=== PATIENT | female | born 1980 | race African-American/Black ===

== ENCOUNTER 2019-05-08 05:44 | Emergency (ER) | payer MEDICAID ==
[~2019-05-08] VITALS: Ht 162.6 cm; Wt 141.0 kg
[~2019-05-08 05:44] MED LIST: ACET120S38 RC; ACET9.6D PO; CLIN75CA2 PO; HYDR12.529 PO; [UNRECOGNIZED DRUG - CODE] MC
[2019-05-08] MEDS ORDERED: SODIUM CHLORIDE 0.9% 1,000 ML IV ONE (06:48)
[2019-05-08] MEDS ORDERED: DIPHENHYDRAMINE 50MG/ML VIAL IV ONE (07:00)
[2019-05-08] MEDS ORDERED: METOCLOPRAMIDE HCL 10MG/2ML VIAL IV ONE (07:00)
[2019-05-08] MEDS ORDERED: LORAZEPAM 2MG/ML CPJ IV ONE (07:00)
[2019-05-08 07:39] LABS: BASOPHILS % 0.5 % (0.0-2.0); EOSINOPHILS % 2.5 % (0.0-5.0); HEMOGLOBIN. 13.3 g/dL (12.0-16.0); LYMPHOCYTES % 43.6 % (20.0-50.0); MEAN CORPUSCULAR HEMOGLOBIN 27.6 pg (28.0-32.0); MEAN CORPUSCULAR VOLUME 82.9 fL (81.0-99.0); MEAN PLATELET VOLUME 7.7 fl (7.4-10.4); MONOCYTES % 7.5 % (2.0-8.0); NEUTROPHILS % 45.9 % (40.0-76.0); PLATELET 311 x1000/uL (130-400); RED BLOOD CELL COUNT 4.83 mill/uL (4.2-5.4); RED CELL DISTRIBUTION WIDTH 15.5 % (11.6-14.6)
[2019-05-08 07:48] LABS: CHLORIDE 110 mEq/L (98-107)
[2019-05-08 07:52] LABS: ETHANOL BLOOD < 10 mg/dL
[2019-05-08 08:36] LABS: CLARITY URINE CLOUDY (CLEAR); COLOR URINE YELLOW (YELLOW); KETONES URINE NEGATIVE (NEGATIVE); LEUKOCYTE ESTERASE URINE NEGATIVE (NEGATIVE); NITRITE URINE NEGATIVE (NEGATIVE); OCCULT BLOOD URINE TRACE (NEGATIVE); PH URINE 5.5 (4.5-8.0); PROTEIN URINE 2+ (NEGATIVE); SPECIFIC GRAVITY URINE 1.016 (1.005-1.030); UROBILINOGEN URINE 0.2 E.U./dL (0.2-1.0)
[2019-05-08 08:57] LABS: *BENZODIAZEPINES SCREEN URINE NEGATIVE (NEGATIVE)
[2019-05-08 08:58] LABS: *AMPHETAMINES SCREEN URINE NEGATIVE (NEGATIVE); *COCAINE SCREEN URINE NEGATIVE (NEGATIVE); CANNABINOID URINE SCREEN NEGATIVE (NEGATIVE); METHADONE URINE SCREEN NEGATIVE (NEGATIVE); PHENCYCLIDINE URINE SCREEN NEGATIVE (NEGATIVE)
[2019-05-08 08:59] LABS: *BARBITURATES SCREEN URINE NEGATIVE (NEGATIVE)
[2019-05-08 09:00] LABS: OPIATES URINE SCREEN PRESUMTIVE POSITIVE (NEGATIVE)
[2019-05-08 12:08] VITALS: BP 113/83
== END 2019-05-08 12:20 | disposition home or self-care (01) ==
LOC: ER 06:05
DX: R56.9 Unspecified convulsions (principal); F17.210 Nicotine dependence, cigarettes, uncomplicated; Z79.899 Other long term (current) drug therapy
CPT/HCPCS: 36415; 70450; 71045; 80053; 80305; 80320; 81003; 84484; 85025; 93005; 96361; 96374; 96375; 99284; 99406; J1200; J2060; J2765; J7030; G0480

== ENCOUNTER 2019-05-12 12:27 | Emergency (ER) | payer MEDICAID, OTHER ==
[~2019-05-12] VITALS: Ht 165.1 cm; Wt 120.0 kg
[2019-05-12 13:19] LABS: BASOPHILS % 0.5 % (0.0-2.0); EOSINOPHILS % 1.4 % (0.0-5.0); HEMATOCRIT. 39.4 % (36.0-48.0); HEMOGLOBIN. 13.2 g/dL (12.0-16.0); LYMPHOCYTES % 38.7 % (20.0-50.0); MEAN CORPUSCULAR HEMOGLOBIN 27.5 pg (28.0-32.0); MEAN CORPUSCULAR VOLUME 81.9 fL (81.0-99.0); MEAN PLATELET VOLUME 7.5 fl (7.4-10.4); MONOCYTES % 5.6 % (2.0-8.0); NEUTROPHILS % 53.8 % (40.0-76.0); PLATELET 302 x1000/uL (130-400); RED CELL DISTRIBUTION WIDTH 15.4 % (11.6-14.6)
[2019-05-12 13:26] LABS: CHLORIDE 110 mEq/L (98-107)
[2019-05-12 13:29] LABS: ETHANOL BLOOD < 10 mg/dL
[2019-05-12 13:40] LABS: CLARITY URINE CLEAR (CLEAR); COLOR URINE YELLOW (YELLOW); KETONES URINE NEGATIVE (NEGATIVE); LEUKOCYTE ESTERASE URINE NEGATIVE (NEGATIVE); NITRITE URINE NEGATIVE (NEGATIVE); OCCULT BLOOD URINE TRACE (NEGATIVE); PROTEIN URINE 2+ (NEGATIVE); SPECIFIC GRAVITY URINE 1.021 (1.005-1.030); UROBILINOGEN URINE 0.2 E.U./dL (0.2-1.0)
[2019-05-12] MEDS ORDERED: PHENYTOIN SODIUM 1,000 MG in SODIUM CHLORIDE 0.9% 100 ML IV ONE (13:45)
[2019-05-12 14:17] LABS: *BARBITURATES SCREEN URINE NEGATIVE (NEGATIVE); *COCAINE SCREEN URINE NEGATIVE (NEGATIVE); METHADONE URINE SCREEN NEGATIVE (NEGATIVE)
[2019-05-12 14:18] LABS: *AMPHETAMINES SCREEN URINE NEGATIVE (NEGATIVE); *BENZODIAZEPINES SCREEN URINE NEGATIVE (NEGATIVE); PHENCYCLIDINE URINE SCREEN NEGATIVE (NEGATIVE)
[2019-05-12 14:21] LABS: CANNABINOID URINE SCREEN PRESUMTIVE POSITIVE (NEGATIVE); OPIATES URINE SCREEN PRESUMTIVE POSITIVE (NEGATIVE)
[2019-05-12 16:50] VITALS: BP 134/71
== END 2019-05-12 16:50 | disposition home or self-care (01) ==
LOC: ER 12:27
DX: G40.909 Epilepsy, unspecified, not intractable, without status epilepticus (principal); R89.2 Abnormal level of other drugs, medicaments and biological substances in specimens from other organs, systems and tissues
CPT/HCPCS: 36415; 80053; 80185; 80305; 80320; 81003; 81025; 82962; 85025; 96365; 96366; 99283; J1165; J7050; G0480

== ENCOUNTER → 2020-03-18 | Outpatient (CLI) | payer MEDICAID ==
[~2020-03-18] MED LIST changes: +AMLO10TA80 PO; +DYR5 PO; +LACO200T2 PO; +METF-414 PO; +albuterol INH
== END | disposition home or self-care (01) ==
LOC: LAB 10:40
PROVIDERS: ATTEND Obstetrics & Gynecology
DX: Z01.812 Encounter for preprocedural laboratory examination (principal); Z20.828 Contact with and (suspected) exposure to other viral communicable diseases
CPT/HCPCS: C9803; U0003

== ENCOUNTER 2020-03-20 06:56 | Day surgery (SDC) | payer MEDICAID, OTHER ==
[~2020-03-20] VITALS: Ht 157.5 cm; Wt 107.0 kg
[~2020-03-20 06:56] MED LIST changes: -ACET120S38 RC; -ACET9.6D PO; -CLIN75CA2 PO; -HYDR12.529 PO; -[UNRECOGNIZED DRUG - CODE] MC
[2020-03-20] MEDS ORDERED: SODIUM CHLORIDE 0.9% 1,000 ML IV SCH (07:30)
[2020-03-20 07:53] LABS: BASOPHILS % 1.2 % (0.0-2.0); EOSINOPHILS % 1.1 % (0.0-5.0); HEMATOCRIT. 42.4 % (36.0-48.0); HEMOGLOBIN. 13.8 g/dL (12.0-16.0); LYMPHOCYTES % 40.5 % (20.0-50.0); MEAN CORPUSCULAR HEMOGLOBIN 26.5 pg (28.0-32.0); MEAN CORPUSCULAR VOLUME 81.5 fL (81.0-99.0); MEAN PLATELET VOLUME 7.4 fl (7.4-10.4); MONOCYTES % 5.7 % (2.0-8.0); NEUTROPHILS % 51.5 % (40.0-76.0); PLATELET 357 x1000/uL (130-400); RED CELL DISTRIBUTION WIDTH 15.7 % (11.6-14.6)
[2020-03-20 08:01] LABS: INR 0.9; PARTIAL THROMBOPLASTIN TIME 32.9 sec (23.4-31.0); PROTHROMBIN TIME 9.8 sec (9.6-11.0)
[2020-03-20 08:02] LABS: CHLORIDE 105 mEq/L (98-107)
[2020-03-20 08:06] LABS: HCG SCREEN NEGATIVE
[2020-03-20] MEDS ORDERED: SODIUM CHLORIDE 0.9% 1,000 ML IV ONE (09:23)
[2020-03-20] MEDS ORDERED: ONDANSETRON HCL 4MG/2ML INJ IV PRN (09:30)
[2020-03-20] MEDS ORDERED: MEPERIDINE HCL/PF 25MG/ML CPJ IV PRN (09:30)
[2020-03-20] MEDS ORDERED: MORPHINE SULFATE 2 MG/ML CPJ (NOT FOR IM USE) IV PRN (09:30)
[2020-03-20] MEDS ORDERED: GLYCOPYRROLATE 0.2 MG/ML 2ML VIAL ONE (10:44)
[2020-03-20] MEDS ORDERED: LIDOCAINE HCL/PF 1% 10 MG/ML 5ML VIAL ONE (10:44)
[2020-03-20] MEDS ORDERED: FENTANYL CITRATE/PF 50MCG/ML 2ML VIAL ONE (10:44)
[2020-03-20] MEDS ORDERED: ONDANSETRON HCL 4MG/2ML INJ ONE (10:44)
[2020-03-20] MEDS ORDERED: PROPOFOL 200MG/20ML VIAL IV ONE (10:44)
[2020-03-20] MEDS ORDERED: METOCLOPRAMIDE HCL 10MG/2ML VIAL ONE (10:44)
[2020-03-20] MEDS ORDERED: SUCCINYLCHOLINE CHLORIDE 200MG/10ML IV ONE (10:44)
[2020-03-20] MEDS ORDERED: MIDAZOLAM HCL 2 MG/2 ML VIAL ONE (10:44)
[2020-03-20] MEDS: HYDROMORPHONE HCL/PF 2MG/ML CPJ IV PRN ×2 (12:11→12:20)
[2020-03-20 12:20] VITALS: BP 130/81
== END 2020-03-20 13:45 | disposition home or self-care (01) ==
LOC: OR 06:56
PROVIDERS: ATTEND Obstetrics & Gynecology
DX: N93.9 Abnormal uterine and vaginal bleeding, unspecified (principal); D25.1 Intramural leiomyoma of uterus; I10 Essential (primary) hypertension; E11.9 Type 2 diabetes mellitus without complications; Z79.899 Other long term (current) drug therapy; Z90.49 Acquired absence of other specified parts of digestive tract; Z79.84 Long term (current) use of oral hypoglycemic drugs; Z88.0 Allergy status to penicillin; Z98.890 Other specified postprocedural states
CPT/HCPCS: 36415; 58558; 80053; 82962; 84703; 85025; 85610; 85730; 86850; 86900; 86901; 88305; J0330; J1170; J2250; J2405; J2704; J2765; J3010; J3490

== ENCOUNTER 2021-07-29 17:26 | Emergency (ER) | payer OTHER ==
[~2021-07-29] VITALS: Ht 157.5 cm; Wt 139.0 kg
[~2021-07-29 17:26] MED LIST changes: +ABIL5 PO; +ALBU18HF2 IH; +AMLO10TA80 MT; -AMLO10TA80 PO; +DULO60CA64 PO; +GABA-532 PO; +GLIP5TAB12 MT; +LANTUSUD SUBCUT; +PHEN-434 MT; -albuterol INH
[2021-07-29 23:56] LABS: CHLORIDE 103 mEq/L (98-107)
[2021-07-30 00:04] LABS: BASOPHILS % 1.2 % (0.0-2.0); EOSINOPHILS % 1.4 % (0.0-5.0); HEMATOCRIT. 42.3 % (36.0-48.0); HEMOGLOBIN. 14.1 g/dL (12.0-16.0); LYMPHOCYTES % 45.1 % (20.0-50.0); MEAN CORPUSCULAR HEMOGLOBIN 27.5 pg (28.0-32.0); MEAN CORPUSCULAR VOLUME 82.4 fL (81.0-99.0); MEAN PLATELET VOLUME 8.6 fl (7.4-10.4); MONOCYTES % 7.3 % (2.0-8.0); PLATELET 302 x1000/uL (130-400); RED BLOOD CELL COUNT 5.13 mill/uL (4.2-5.4); RED CELL DISTRIBUTION WIDTH 15.2 % (11.6-14.6)
[2021-07-30 00:05] LABS: BETA HYDROXYBUTYRATE 0.1 mMol/L (0.0-0.3)
[2021-07-30 00:40] VITALS: BP 131/71
== END 2021-07-30 00:47 | disposition home or self-care (01) ==
LOC: ER 17:26
DX: E11.65 Type 2 diabetes mellitus with hyperglycemia (principal); J45.909 Unspecified asthma, uncomplicated; F31.9 Bipolar disorder, unspecified; I10 Essential (primary) hypertension; Z79.899 Other long term (current) drug therapy
CPT/HCPCS: 36415; 80053; 82010; 82962; 83880; 84484; 85025; 93005; 99284

== ENCOUNTER 2021-08-16 13:17 | Emergency (ER) | payer OTHER ==
[~2021-08-16] VITALS: Ht 167.6 cm; Wt 90.0 kg
[2021-08-16] MEDS ORDERED: SODIUM CHLORIDE 0.9% 1,000 ML IV ONE (13:30)
[2021-08-16 15:30] VITALS: BP 111/79
== END 2021-08-16 19:11 | disposition home or self-care (01) ==
LOC: ER 13:17
DX: E11.65 Type 2 diabetes mellitus with hyperglycemia (principal); I10 Essential (primary) hypertension; J45.909 Unspecified asthma, uncomplicated; F31.9 Bipolar disorder, unspecified; Z79.899 Other long term (current) drug therapy; Z88.0 Allergy status to penicillin
CPT/HCPCS: 71045; 82962; 96360; 99283; J7030

== ENCOUNTER 2021-09-02 12:42 | Emergency (ER) | payer OTHER ==
[~2021-09-02] VITALS: Ht 157.5 cm; Wt 132.0 kg
[2021-09-02 12:47] VITALS: BP 124/80
[2021-09-02] MEDS ORDERED: CEFTRIAXONE SODIUM 500 MG/VIAL IM ONE (13:00)
[2021-09-02] MEDS ORDERED: LIDOCAINE HCL 1% 20ML VIAL (Pyxis) INJ INFIL ONE (13:00)
[2021-09-02] MEDS ORDERED: DOXYCYCLINE HYCLATE 100MG CAPSULE PO ONE (13:00)
[2021-09-02 14:20] LABS: CLARITY URINE CLEAR (CLEAR); COLOR URINE YELLOW (YELLOW); KETONES URINE NEGATIVE (NEGATIVE); LEUKOCYTE ESTERASE URINE NEGATIVE (NEGATIVE); NITRITE URINE NEGATIVE (NEGATIVE); OCCULT BLOOD URINE NEGATIVE (NEGATIVE); PROTEIN URINE 1+ (NEGATIVE); SPECIFIC GRAVITY URINE 1.037 (1.005-1.030); UROBILINOGEN URINE 0.2 E.U./dL (0.2-1.0)
[2021-09-02] MEDS ORDERED: DIF15 MT (15:07)
[2021-09-02] MEDS ORDERED: DOXY100C5 MT (15:07)
[2021-09-02] MEDS ORDERED: CLOT15CR27 TP (15:08)
[2021-09-05 04:07] LABS: NEISSERIA GONORRHOEAE NAA Negative (Negative)
== END 2021-09-02 15:23 | disposition home or self-care (01) ==
LOC: ER 12:42
DX: B37.3 Candidiasis of vulva and vagina (principal)
CPT/HCPCS: 81003; 87210; 87491; 87591; 96372; 99284; J0696; J3490

== ENCOUNTER 2021-10-22 20:27 | Emergency (ER) | payer MEDICAID, OTHER ==
[~2021-10-22] VITALS: Ht 170.2 cm; Wt 69.0 kg
[~2021-10-22 20:27] MED LIST changes: +CLOT15CR27 TP; +DIF15 MT; +DOXY100C5 MT
[2021-10-22 20:29] VITALS: BP 126/81
== END 2021-10-22 21:11 | disposition left against medical advice (07) ==
LOC: ER 20:27
DX: G40.909 Epilepsy, unspecified, not intractable, without status epilepticus (principal); R51.9 Headache, unspecified; I10 Essential (primary) hypertension; E11.9 Type 2 diabetes mellitus without complications; F31.9 Bipolar disorder, unspecified
CPT/HCPCS: 99283

== ENCOUNTER 2021-12-26 09:57 | Emergency (ER) | payer MEDICAID, OTHER ==
[~2021-12-26] VITALS: Ht 165.1 cm; Wt 82.0 kg
[2021-12-26] MEDS ORDERED: DILANTIN (10:03)
[2021-12-26] MEDS ORDERED: METFORMIN (10:03)
[2021-12-26 11:15] LABS: BASOPHILS % 0.3 % (0.0-2.0); EOSINOPHILS % 1.7 % (0.0-5.0); HEMATOCRIT. 37.8 % (36.0-48.0); HEMOGLOBIN. 12.3 g/dL (12.0-16.0); LYMPHOCYTES % 41.3 % (20.0-50.0); MEAN CORPUSCULAR HEMOGLOBIN 26.7 pg (28.0-32.0); MEAN CORPUSCULAR VOLUME 82.1 fL (81.0-99.0); MEAN PLATELET VOLUME 7.3 fl (7.4-10.4); MONOCYTES % 6.8 % (2.0-8.0); NEUTROPHILS % 49.9 % (40.0-76.0); PLATELET 353 x1000/uL (130-400); RED BLOOD CELL COUNT 4.61 mill/uL (4.2-5.4); RED CELL DISTRIBUTION WIDTH 16.1 % (11.6-14.6)
[2021-12-26 11:30] LABS: HCG SCREEN NEGATIVE
[2021-12-26] MEDS ORDERED: LEVETIRACETAM 1000MG PREMIX 100 ML IV ONE (11:30)
[2021-12-26 11:42] LABS: CHLORIDE 116 mEq/L (98-107)
[2021-12-26 11:50] LABS: PHOSPHORUS 2.4 mg/dL (2.5-4.9)
[2021-12-26 12:22] VITALS: BP 139/80
[2021-12-26] MEDS ORDERED: POTASSIUM-SODIUM PHOSPHATE POWDER PACKET PO ONE (12:30)
== END 2021-12-26 12:41 | disposition home or self-care (01) ==
LOC: ER 09:57
DX: R56.9 Unspecified convulsions (principal); J45.909 Unspecified asthma, uncomplicated; F31.9 Bipolar disorder, unspecified; E11.9 Type 2 diabetes mellitus without complications; I10 Essential (primary) hypertension; Z98.890 Other specified postprocedural states; F17.290 Nicotine dependence, other tobacco product, uncomplicated; Z79.899 Other long term (current) drug therapy
CPT/HCPCS: 36415; 80053; 83735; 84100; 84703; 85025; 96365; 99284; J1953

== ENCOUNTER 2022-02-15 10:04 | Inpatient (IN) | payer OTHER ==
[~2022-02-15] VITALS: Ht 157.5 cm; Wt 115.7 kg
[~2022-02-15 10:04] MED LIST changes: +DILANTIN; +METFORMIN
[2022-02-15] MEDS ORDERED: FUROSEMIDE 40MG/4ML VIAL IV ONE (11:00)
[2022-02-15] MEDS ORDERED: ASPIRIN 81MG TABLET PO ONE (11:00)
[2022-02-15] MEDS ORDERED: NITROGLYCERIN OINT 1GM/INCH UDPKT TD ONE (11:00)
[2022-02-15 11:32] LABS: BASOPHILS % 1.1 % (0.0-2.0); EOSINOPHILS % 2.4 % (0.0-5.0); HEMATOCRIT. 37.2 % (36.0-48.0); HEMOGLOBIN. 12.1 g/dL (12.0-16.0); LYMPHOCYTES % 36.8 % (20.0-50.0); MEAN CORPUSCULAR HEMOGLOBIN 27.2 pg (28.0-32.0); MEAN PLATELET VOLUME 7.3 fl (7.4-10.4); MONOCYTES % 6.5 % (2.0-8.0); NEUTROPHILS % 53.2 % (40.0-76.0); PLATELET 317 x1000/uL (130-400); RED BLOOD CELL COUNT 4.43 mill/uL (4.2-5.4); RED CELL DISTRIBUTION WIDTH 16.1 % (11.6-14.6)
[2022-02-15 11:37] LABS: CHLORIDE 106 mEq/L (98-107)
[2022-02-15] MEDS ORDERED: LIDOCAINE HCL/EPINEPHRINE 1%-EPI 1:100,000 20 ML VIAL INFIL ONE (11:45)
[2022-02-15 12:01] LABS: HCG SCREEN NEGATIVE
[2022-02-15] MEDS ORDERED: CLINDAMYCIN 600 MG in DEXTROSE 5% WATER 50 ML IV ONE (12:30)
[2022-02-15 12:47] LABS: D-DIMER 0.6 mg/L FEU (<0.50); INR 0.9; PARTIAL THROMBOPLASTIN TIME 29.3 sec (23.4-31.0); PROTHROMBIN TIME 9.6 sec (9.6-11.0)
[2022-02-15] MEDS ORDERED: CLINDAMYCIN 600 MG PREMIX 50 ML IV SCH (13:00)
[2022-02-15] MEDS ORDERED: IOHEXOL-350 100 ML BOTTLE ONE (14:12)
[2022-02-15] MEDS ORDERED: MORPHINE SULFATE 4 MG/ML CPJ (NOT FOR IM USE) IV STA (15:55)
[2022-02-15] MEDS ORDERED: ONDANSETRON HCL 4MG/2ML INJ IV STA (15:55)
[2022-02-15 22:30] VITALS: BP 108/70
[2022-02-16] VITALS: BP 104/61
[2022-02-16] MEDS: HYDROCODONE/ACETAMINOPHEN 5/325MG TABLET PO PRN ×3 (01:43→15:54)
[2022-02-16 02:41] VITALS: BP 108/70
[2022-02-16] MEDS: CLINDAMYCIN 600 MG PREMIX 50 ML IV SCH ×2 (04:14→14:23)
[2022-02-16] MEDS: BLOOD SUGAR DIAGNOSTIC STRIP TEST SCH ×3 (06:36→17:20)
[2022-02-16] MEDS ORDERED: DEXTROSE 50% WATER 50ML SYRINGE IV PRN (06:45)
[2022-02-16 06:57] LABS: BASOPHILS % 0.2 % (0.0-2.0); EOSINOPHILS % 1.5 % (0.0-5.0); HEMATOCRIT. 36.5 % (36.0-48.0); LYMPHOCYTES % 24.6 % (20.0-50.0); MEAN CORPUSCULAR VOLUME 82.2 fL (81.0-99.0); MEAN PLATELET VOLUME 7.5 fl (7.4-10.4); MONOCYTES % 6.7 % (2.0-8.0); PLATELET 316 x1000/uL (130-400); RED BLOOD CELL COUNT 4.43 mill/uL (4.2-5.4); RED CELL DISTRIBUTION WIDTH 15.9 % (11.6-14.6)
[2022-02-16 07:49] LABS: CHLORIDE 106 mEq/L (98-107)
[2022-02-16 07:57] LABS: HDL CHOLESTEROL 46 mg/dL (40-59); LDL CHOLESTEROL 77 mg/dL (5-100)
[2022-02-16 08:00] VITALS: BP 128/61
[2022-02-16] MEDS ORDERED: ASPIRIN 81MG TABLET PO SCH (09:00)
[2022-02-16] MEDS ORDERED: FUROSEMIDE 20MG/2ML VIAL IVP SCH (09:00)
[2022-02-16] MEDS ORDERED: CARVEDILOL 3.125 MG TABLET PO SCH (09:00)
[2022-02-16] MEDS ORDERED: LISINOPRIL 20MG TABLET PO SCH (09:00)
[2022-02-16] MEDS ORDERED: ENOXAPARIN 30MG/0.3ML SYR SUBCUT SCH (09:00)
[2022-02-16] MEDS: INSULIN LISPRO 100 UNITS/ML SUBCUT SCH ×3 (09:40→17:26)
[2022-02-16] MEDS ORDERED: PROM5SYR PO (11:18)
[2022-02-16] MEDS ORDERED: ATOR20TA65 PO (11:18)
[2022-02-16] MEDS ORDERED: LACO200T2 PO (11:18)
[2022-02-16] MEDS ORDERED: NAPR-681 PO (11:18)
[2022-02-16] MEDS ORDERED: CLOB10TA17 PO (11:18)
[2022-02-16] MEDS ORDERED: LANTUSUD SUBCUT (11:18)
[2022-02-16] MEDS ORDERED: LEVE750T66 PO (11:18)
[2022-02-16] MEDS ORDERED: OXYC-662 MT (11:18)
[2022-02-16] MEDS ORDERED: ACET-3163 PO (11:18)
[2022-02-16] MEDS ORDERED: FURO-151 MT (11:39)
[2022-02-16] MEDS ORDERED: CLIN-194 MT (11:41)
[2022-02-16] MEDS ORDERED: FAMOTIDINE 20MG/2ML VIAL IV NR (11:45)
[2022-02-16 12:00] VITALS: BP 106/65
[2022-02-16 16:00] VITALS: BP 131/79
[2022-02-16 16:39] VITALS: BP 131/79
== END 2022-02-16 18:00 | disposition home or self-care (01) | DRG 194 ==
LOC: ER 10:04 → 6WST 15:10 → ENRESERV 21:03
PROVIDERS: ADMIT Internal Medicine; ATTEND Internal Medicine
DX: I11.0 Hypertensive heart disease with heart failure (principal); E11.9 Type 2 diabetes mellitus without complications; E66.01 Morbid (severe) obesity due to excess calories; G40.909 Epilepsy, unspecified, not intractable, without status epilepticus; L03.119 Cellulitis of unspecified part of limb; I50.33 Acute on chronic diastolic (congestive) heart failure; J45.909 Unspecified asthma, uncomplicated; Z88.0 Allergy status to penicillin; Z88.8 Allergy status to other drugs, medicaments and biological substances; Z79.899 Other long term (current) drug therapy; Z68.42 Body mass index [BMI] 45.0-49.9, adult; Z90.49 Acquired absence of other specified parts of digestive tract
CPT/HCPCS: 36415; 71045; 71275; 80048; 80053; 80061; 82962; 83036; 83880; 84484; 84703; 85025; 85379; 93005; 93306; 93970; 99285; J1650; J1815; J1940; J2270; J2405; J3490; J7060; Q9967

== ENCOUNTER 2022-05-19 09:58 | Emergency (ER) | payer MEDICAID, OTHER ==
[~2022-05-19] VITALS: Ht 157.5 cm; Wt 137.0 kg
[~2022-05-19 09:58] MED LIST changes: +ACET-3163 PO; -ALBU18HF2 IH; +ATOR20TA65 PO; +CLOB10TA17 PO; -CLOT15CR27 TP; -DIF15 MT; -DILANTIN; -DOXY100C5 MT; -DULO60CA64 PO; +FURO-151 MT; -GABA-532 PO; -LANTUSUD SUBCUT; +LEVE750T66 PO; -METFORMIN; -PHEN-434 MT
[2022-05-19] MEDS ORDERED: MORPHINE SULFATE 4 MG/ML CPJ (NOT FOR IM USE) IV STA (10:50)
[2022-05-19] MEDS ORDERED: FLUCONAZOLE 100MG TABLET PO ONE (11:15)
[2022-05-19] MEDS ORDERED: FLUCONAZOLE 150MG TABLET PO NR (11:30)
[2022-05-19 11:32] LABS: BASOPHILS % 0.7 % (0.0-2.0); EOSINOPHILS % 1.9 % (0.0-5.0); HEMATOCRIT. 39.3 % (36.0-48.0); HEMOGLOBIN. 13.1 g/dL (12.0-16.0); MEAN CORPUSCULAR HEMOGLOBIN 27.6 pg (28.0-32.0); MEAN CORPUSCULAR VOLUME 83.1 fL (81.0-99.0); MEAN PLATELET VOLUME 7.5 fl (7.4-10.4); NEUTROPHILS % 51.4 % (40.0-76.0); PLATELET 302 x1000/uL (130-400); RED BLOOD CELL COUNT 4.73 mill/uL (4.2-5.4); RED CELL DISTRIBUTION WIDTH 16.8 % (11.6-14.6)
[2022-05-19 11:37] LABS: CHLORIDE 109 mEq/L (98-107)
[2022-05-19 13:00] VITALS: BP 132/80
[2022-05-19] MEDS ORDERED: OXYC-100 MT (14:58)
== END 2022-05-19 15:10 | disposition home or self-care (01) ==
LOC: ER 09:58
DX: M54.59 Other low back pain (principal); M25.552 Pain in left hip; M25.562 Pain in left knee; R07.89 Other chest pain; R26.2 Difficulty in walking, not elsewhere classified; G89.11 Acute pain due to trauma; R94.31 Abnormal electrocardiogram [ECG] [EKG]; I11.0 Hypertensive heart disease with heart failure; I50.9 Heart failure, unspecified; E11.9 Type 2 diabetes mellitus without complications; W18.2XXA Fall in (into) shower or empty bathtub, initial encounter; Y93.E8 Activity, other personal hygiene; Y92.012 Bathroom of single-family (private) house as the place of occurrence of the external cause
CPT/HCPCS: 36415; 71045; 73502; 80053; 83880; 84484; 85025; 93005; 99285

== ENCOUNTER 2023-04-08 21:23 | Emergency (ER) | payer MEDICAID ==
[~2023-04-08] VITALS: Ht 157.5 cm; Wt 114.0 kg
[~2023-04-08 21:23] MED LIST changes: +OXYC-100 MT
[2023-04-08 21:25] VITALS: O2SAT 97
[2023-04-08] MEDS ORDERED: LEVETIRACETAM 1000MG PREMIX 100 ML IV ONE (22:45)
[2023-04-08] MEDS ORDERED: CARBAMAZEPINE 100MG TABLET CHEW PO ONE (22:45)
[2023-04-08 23:09] LABS: BASOPHILS % 0.5 % (0.0-2.0); EOSINOPHILS % 3.2 % (0.0-5.0); HEMATOCRIT. 39.4 % (36.0-48.0); LYMPHOCYTES % 43.3 % (20.0-50.0); MEAN CORPUSCULAR HEMOGLOBIN 27.5 pg (28.0-32.0); MEAN CORPUSCULAR VOLUME 83.6 fL (81.0-99.0); MEAN PLATELET VOLUME 7.7 fl (7.4-10.4); MONOCYTES % 6.5 % (2.0-8.0); NEUTROPHILS % 46.5 % (40.0-76.0); PLATELET 322 x1000/uL (130-400); RED BLOOD CELL COUNT 4.72 mill/uL (4.2-5.4); RED CELL DISTRIBUTION WIDTH 16.2 % (11.6-14.6); WHITE BLOOD COUNT 8.9 x1000/uL (4.5-11.0)
[2023-04-08 23:17] LABS: CHLORIDE 115 mEq/L (98-107); INDEX HEMOLYSI 1 (1-3); INDEX ICTERIC 1 (1-4); INDEX LIPEMIC 1 (1-3); POTASSIUM 3.4 mEq/L (3.5-5.1); SODIUM 145 mEq/L (136-145)
[2023-04-08 23:21] LABS: CALCIUM 8.5 mg/dL (8.5-10.1); CARBON DIOXIDE 28 mEq/L (21-32); ETHANOL BLOOD < 10 mg/dL (-10); GLUCOSE 143 mg/dL (70-105); UREA NITROGEN BLOOD 17 mg/dL (7-21)
[2023-04-08 23:25] LABS: ALANINE AMINOTRANSFERASE 46 IU/L (13-61); ASPARTATE AMINOTRANSFERASE 24 IU/L (15-37); BILIRUBIN TOTAL 0.2 mg/dL (0.1-1.0); CREATININE 0.8 mg/dL (0.6-1.3); PROTEIN TOTAL 6.5 g/dL (6.0-8.3)
[2023-04-09] MEDS ORDERED: ACETAMINOPHEN 325MG TABLET PO NR
[2023-04-09 01:05] VITALS: BP 107/57; PULSE 94; RESP 18; TEMP 98.2
== END 2023-04-09 01:05 | disposition home or self-care (01) ==
LOC: ER 21:23
DX: R56.9 Unspecified convulsions (principal); I11.0 Hypertensive heart disease with heart failure; I50.9 Heart failure, unspecified; J45.909 Unspecified asthma, uncomplicated; E11.9 Type 2 diabetes mellitus without complications; F17.200 Nicotine dependence, unspecified, uncomplicated; Z79.899 Other long term (current) drug therapy; Z00.00 Encounter for general adult medical examination without abnormal findings
CPT/HCPCS: 80053; 80320; 85025; 36415; 96365; 99284; J1953; G0480

== ENCOUNTER 2023-06-29 13:03 | Emergency (ER) | payer MEDICAID ==
[~2023-06-29] VITALS: Ht 157.5 cm; Wt 138.4 kg
[~2023-06-29 13:03] MED LIST changes: -GLIP5TAB12 MT; +GLIP5TAB22 MT
[2023-06-29 13:12] VITALS: BP 151/76; PULSE 93; RESP 20; O2SAT 100
== END 2023-06-29 17:04 | disposition left against medical advice (07) ==
LOC: ER 14:07
DX: M79.601 Pain in right arm (principal); Z53.21 Procedure and treatment not carried out due to patient leaving prior to being seen by health care provider
CPT/HCPCS: 99281

== ENCOUNTER 2023-07-09 11:47 | Emergency (ER) | payer MEDICAID ==
[~2023-07-09] VITALS: Ht 177.8 cm; Wt 111.0 kg
[2023-07-09 11:53] VITALS: O2SAT 99
[2023-07-09] MEDS ORDERED: SODIUM CHLORIDE 0.9% 1,000 ML IV ONE (12:15)
[2023-07-09 13:43] LABS: BASOPHILS % 0.5 % (0.0-2.0); HEMOGLOBIN. 14.9 g/dL (12.0-16.0); LYMPHOCYTES % 44.9 % (20.0-50.0); MEAN CORPUSCULAR HEMOGLOBIN 27.4 pg (28.0-32.0); MEAN CORPUSCULAR VOLUME 82.8 fL (81.0-99.0); MEAN PLATELET VOLUME 8.8 fl (7.4-10.4); MONOCYTES % 5.8 % (2.0-8.0); NEUTROPHILS % 47.8 % (40.0-76.0); PLATELET 259 x1000/uL (130-400); RED BLOOD CELL COUNT 5.43 mill/uL (4.2-5.4); WHITE BLOOD COUNT 8.5 x1000/uL (4.5-11.0)
[2023-07-09 14:09] VITALS: BP 147/98; PULSE 124; RESP 22; TEMP 98.1
[2023-07-09 14:18] LABS: ALANINE AMINOTRANSFERASE 33 IU/L (10-49); ALBUMIN 4.1 g/dL (3.2-4.8); ASPARTATE AMINOTRANSFERASE 25 IU/L (<34); BILIRUBIN TOTAL 0.3 mg/dL (0.1-1.0); CALCIUM 9.4 mg/dL (8.7-10.4); CARBON DIOXIDE 26 mEq/L (21-32); CHLORIDE 101 mEq/L (98-107); PROTEIN TOTAL 7.5 g/dL (6.0-8.3); SODIUM 136 mEq/L (136-145); UREA NITROGEN BLOOD 9 mg/dL (9-23)
[2023-07-09 14:38] LABS: HCG SCREEN NEGATIVE
[2023-07-09 14:56] LABS: GLUCOSE 459 mg/dL (70-105)
[2023-07-09 15:27] LABS: CLARITY URINE CLOUDY (CLEAR); COLOR URINE YELLOW (YELLOW); GLUCOSE URINE 3+ (NEGATIVE); KETONES URINE TRACE (NEGATIVE); LEUKOCYTE ESTERASE URINE NEGATIVE (NEGATIVE); NITRITE URINE NEGATIVE (NEGATIVE); OCCULT BLOOD URINE 1+ (NEGATIVE); PROTEIN URINE 2+ (NEGATIVE); SPECIFIC GRAVITY URINE 1.049 (1.005-1.030); UROBILINOGEN URINE 0.2 E.U./dL (0.2-1.0)
[2023-07-09 15:46] LABS: BACTERIA URINE 1+; SQUAMOUS EPITHELIAL CELL URINE 1+ /lpf (RARE/1+)
[2023-07-09 15:47] LABS: RBC URINE 0-2 /hpf (0-2); YEAST URINE FEW
[2023-07-09] MEDS ORDERED: INSULIN REGULAR (HUMULIN R) 300UNITS/3ML VIAL SUBCUT ONE (16:00)
[2023-07-09] MEDS ORDERED: NEED-472 SQ (16:02)
[2023-07-09] MEDS ORDERED: LANC-585 TP (16:02)
[2023-07-09] MEDS ORDERED: METF-414 MT (16:02)
[2023-07-09 16:33] LABS: BETA HYDROXYBUTYRATE 0.2 mMol/L (0.0-0.3)
== END 2023-07-09 16:32 | disposition home or self-care (01) ==
LOC: ER 11:47
DX: E11.65 Type 2 diabetes mellitus with hyperglycemia (principal); J45.909 Unspecified asthma, uncomplicated; I10 Essential (primary) hypertension; Z98.890 Other specified postprocedural states; Z79.899 Other long term (current) drug therapy
CPT/HCPCS: 99283; 96360; 96361; 80053; 81003; 81025; 82010; 82962; 84703; 83690; 85025; 36415; 96372; J7030; J1815

== ENCOUNTER 2023-07-18 19:59 | Emergency (ER) | payer MEDICAID, OTHER ==
[~2023-07-18] VITALS: Ht 157.5 cm; Wt 130.0 kg
[~2023-07-18 19:59] MED LIST changes: +LANC-585 TP; +METF-414 MT; +NEED-472 SQ
[2023-07-18 20:02] VITALS: O2SAT 100
[2023-07-18] MEDS ORDERED: LEVETIRACETAM 500MG PREMIX 100 ML IV ONE (20:30)
[2023-07-18] MEDS ORDERED: SODIUM CHLORIDE 0.9% 1,000 ML IV ONE ×2 (20:30)
[2023-07-18 20:40] LABS: BASOPHILS % 0.7 % (0.0-2.0); EOSINOPHILS % 1.2 % (0.0-5.0); HEMATOCRIT. 46.2 % (36.0-48.0); LYMPHOCYTES % 28.9 % (20.0-50.0); MEAN CORPUSCULAR HEMOGLOBIN 27.2 pg (28.0-32.0); MEAN CORPUSCULAR HGB CONC 32.5 g/dL (31.0-37.0); MEAN CORPUSCULAR VOLUME 83.9 fL (81.0-99.0); MEAN PLATELET VOLUME 8.7 fl (7.4-10.4); MONOCYTES % 6.8 % (2.0-8.0); NEUTROPHILS % 62.4 % (40.0-76.0); PLATELET 234 x1000/uL (130-400); RED BLOOD CELL COUNT 5.51 mill/uL (4.2-5.4); RED CELL DISTRIBUTION WIDTH 14.9 % (11.6-14.6); WHITE BLOOD COUNT 7.6 x1000/uL (4.5-11.0)
[2023-07-18 20:49] LABS: HCG SCREEN NEGATIVE
[2023-07-18 20:58] LABS: ALANINE AMINOTRANSFERASE 34 IU/L (10-49); ALBUMIN 4.2 g/dL (3.2-4.8); ASPARTATE AMINOTRANSFERASE 21 IU/L (<34); BETA HYDROXYBUTYRATE 0.2 mMol/L (0.0-0.3); BILIRUBIN TOTAL 0.2 mg/dL (0.1-1.0); CALCIUM 9.6 mg/dL (8.7-10.4); CARBON DIOXIDE 25 mEq/L (21-32); CHLORIDE 96 mEq/L (98-107); POTASSIUM 3.8 mEq/L (3.5-5.1); PROTEIN TOTAL 6.9 g/dL (6.0-8.3); SODIUM 130 mEq/L (136-145); TROPONIN I HIGH SENSITIVITY 5 ng/L (3.0-34); UREA NITROGEN BLOOD 10 mg/dL (9-23)
[2023-07-18 21:08] LABS: CLARITY URINE CLEAR (CLEAR); COLOR URINE YELLOW (YELLOW); GLUCOSE URINE 3+ (NEGATIVE); KETONES URINE NEGATIVE (NEGATIVE); LEUKOCYTE ESTERASE URINE NEGATIVE (NEGATIVE); NITRITE URINE NEGATIVE (NEGATIVE); OCCULT BLOOD URINE 2+ (NEGATIVE); PROTEIN URINE 1+ (NEGATIVE); SPECIFIC GRAVITY URINE 1.039 (1.005-1.030); UROBILINOGEN URINE 0.2 E.U./dL (0.2-1.0)
[2023-07-18 21:19] LABS: GLUCOSE 637 mg/dL (70-105)
[2023-07-18] MEDS ORDERED: INSULIN GLARGINE 100 UNITS/ML SUBCUT ONE (21:30)
[2023-07-18] MEDS ORDERED: INSULIN LISPRO 100 UNITS/ML SUBCUT ONE (21:30)
[2023-07-18 21:32] LABS: BACTERIA URINE TRACE; SQUAMOUS EPITHELIAL CELL URINE 1+ /lpf (RARE/1+); WBC URINE 0-2 /hpf (0-2); YEAST URINE RARE
[2023-07-18 22:27] LABS: BG BASE EXCESS 0.8 mmol/L (-2.0-2.0); BG CARBOXYHEMOGLOBIN 3.4 % (0.5-1.5); BG DEOXYHEMOGLOBIN 4.1 % (0.0-5.0); BG FRACTION INSPIRED OXYGEN 21; BG HCO3 ACT 25.7 mmol/L (22.0-26.0); BG METHEMOGLOBIN 0.3 % (0.0-1.5); BG OXYGEN SATURATION 95.7 % (92.0-98.5); BG OXYHEMOGLOBIN 92.2 % (94.0-97.0); BG PCO2 42.1 mmHg (35.0-45.0); BG PH 7.404 (7.350-7.450); BG PO2 76.8 mmHg (75.0-100.0); BG SAMPLE SITE LEFT RADIAL; BG TOTAL HEMOGLOBIN 15.3 g/dL (12.0-18.0); BG VENT MODE ROOM AIR
[2023-07-18] MEDS ORDERED: BLOO-1482 MC (23:21)
[2023-07-18] MEDS ORDERED: [UNRECOGNIZED DRUG - CODE] MC (23:23)
[2023-07-18] MEDS ORDERED: NEED-472 SQ (23:23)
[2023-07-18] MEDS ORDERED: INSU100I28 SQ (23:24)
[2023-07-18 23:59] VITALS: BP 137/86; PULSE 97; RESP 18; TEMP 98.2
== END 2023-07-19 00:02 | disposition home or self-care (01) ==
LOC: ER 19:59
DX: E11.65 Type 2 diabetes mellitus with hyperglycemia (principal); R05.9 Cough, unspecified; R09.81 Nasal congestion; I11.0 Hypertensive heart disease with heart failure; I50.9 Heart failure, unspecified; J45.909 Unspecified asthma, uncomplicated; E11.9 Type 2 diabetes mellitus without complications; Z98.890 Other specified postprocedural states; Z79.899 Other long term (current) drug therapy
CPT/HCPCS: 80053; 81003; 82010; 82962; 84703; 83930; 85025; 84484; 36415; 71045; 82805; 82375; 96365; 96372; 99284; 36600; J1953; J1815 ×2; J7030; Z7610 ×2

== ENCOUNTER 2024-01-19 20:19 | Emergency (ER) | payer MEDICARE, MEDICAID ==
[~2024-01-19] VITALS: Ht 167.6 cm; Wt 160.0 kg
[~2024-01-19 20:19] MED LIST changes: +BLOO-1482 MC; +INSU100I28 SQ; +[UNRECOGNIZED DRUG - CODE] MC
[2024-01-19 20:34] VITALS: O2SAT 98
[2024-01-19] MEDS: LEVETIRACETAM 500MG PREMIX 100 ML IV ONE (22:18)
[2024-01-19 22:43] LABS: BASOPHILS % 0.4 % (0.0-2.0); HEMATOCRIT. 40.2 % (36.0-48.0); HEMOGLOBIN. 12.9 g/dL (12.0-16.0); LYMPHOCYTES % 36.2 % (20.0-50.0); MEAN CORPUSCULAR HEMOGLOBIN 27.4 pg (28.0-32.0); MEAN CORPUSCULAR VOLUME 85.4 fL (81.0-99.0); MEAN PLATELET VOLUME 8.5 fl (7.4-10.4); MONOCYTES % 7.1 % (2.0-8.0); NEUTROPHILS % 55.3 % (40.0-76.0); PLATELET 313 x1000/uL (130-400); RED BLOOD CELL COUNT 4.71 mill/uL (4.2-5.4); RED CELL DISTRIBUTION WIDTH 14.6 % (11.6-14.6); WHITE BLOOD COUNT 11.4 x1000/uL (4.5-11.0)
[2024-01-19 22:52] LABS: CARBON DIOXIDE 24 mEq/L (21-32); CHLORIDE 108 mEq/L (98-107); POTASSIUM 3.4 mEq/L (3.5-5.1); SODIUM 139 mEq/L (136-145)
[2024-01-19 22:54] LABS: HCG SCREEN NEGATIVE
[2024-01-19 22:57] LABS: CREATININE 0.9 mg/dL (0.6-1.0)
[2024-01-19 22:58] LABS: GLUCOSE 316 mg/dL (70-105); UREA NITROGEN BLOOD 10 mg/dL (9-23)
[2024-01-19 22:59] LABS: ALANINE AMINOTRANSFERASE 29 IU/L (10-49); ALBUMIN 3.8 g/dL (3.2-4.8); ASPARTATE AMINOTRANSFERASE 20 IU/L (<34)
[2024-01-19 23:00] LABS: BILIRUBIN TOTAL 0.2 mg/dL (0.1-1.0); PROTEIN TOTAL 6.5 g/dL (6.0-8.3)
[2024-01-19] MEDS ORDERED: LACO200T2 MT (23:25)
[2024-01-19] MEDS ORDERED: POTA-203 MT (23:25)
[2024-01-19] MEDS ORDERED: LEVE1000 MT (23:25)
[2024-01-19] MEDS: LACOSAMIDE 200 MG in SODIUM CHLORIDE 0.9% 50 ML IV SCH (23:51)
[2024-01-20 00:42] VITALS: BP 142/87; PULSE 89; RESP 17; TEMP 98.5
== END 2024-01-20 00:46 | disposition home or self-care (01) ==
LOC: ER 20:19
DX: R56.9 Unspecified convulsions (principal); E87.6 Hypokalemia; E11.9 Type 2 diabetes mellitus without complications; I10 Essential (primary) hypertension; Z79.899 Other long term (current) drug therapy
CPT/HCPCS: 80053; 82962; 84703; 85025; 36415; 80339; 93005; 96367; 96365; 99284; J1953